=== PATIENT | male | born 1985 | race Caucasian/White ===

== ENCOUNTER 2021-02-25 06:45 | Emergency (ER) | payer MEDICAID, OTHER ==
[~2021-02-25] VITALS: Ht 188 cm; Wt 99.5 kg
[2021-02-25 06:54] VITALS: BP 143/85
--- NOTE | 2021-02-25 07:39 | NUR ---
PT TO ROOM FROM LOBBY, GAIT STEADY.
[2021-02-25] MEDS ORDERED: KETOROLAC 30 MG/1 ML ONE (07:47)
--- NOTE | 2021-02-25 08:00 | NUR ---
DC INSTRUCTIONS REVIEWED
[2021-02-25] MEDS ORDERED: KETOROLAC 30 MG/1 ML IM ONE (08:30)
== END 2021-02-25 08:14 | disposition home or self-care (01) ==
LOC: ED 07:55
DX: K08.89 Other specified disorders of teeth and supporting structures (principal)
CPT/HCPCS: 96372; 99283; J1885